=== PATIENT | male | born 2000 | race Caucasian/White ===

== ENCOUNTER → 2018-08-08 | Outpatient (CLI) | payer OTHER ==
[~2018-08-08] MED LIST: AMOXICILLIN250 MG PO; PROVENTIL0.09 MG/A1 INH
[2018-08-08 11:56] LABS: ALBUMIN 4.4 gm/dl (3.1-4.5); ALKALINE PHOSPHATASE 106 U/L (45-117); BUN 9 mg/dl (7-24); CHLORIDE 106 mmol/L (98-107); CHOLESTEROL 167 mg/dL (<200); CREATININE 0.98 mg/dL (0.70-1.30); HDL CHOLESTEROL 45 mg/dl (40-60); LDL CHOLESTEROL 99 mg/dL (9-159); POTASSIUM 4.1 mmol/L (3.5-5.1); SGOT/AST 28 IU/L (3-35); SGPT/ALT 57 U/L (12-78); SODIUM 140 mmol/L (136-145); TOTAL PROTEIN 7.1 gm/dL (6.4-8.2); TRIGLYCERIDES 116 mg/dl (<150); VLDL CHOLESTEROL 23 mg/dL (6-40)
[2018-08-09 06:09] LABS: HEPATITIS B SURFACE AB 006395 Non Reactive (.)
[2018-08-09 16:08] LABS: VARICELLA-ZOSTER IGG 096206 <135 index (Immune >165); VARICELLA-ZOSTER IGM AB <0.91 index (0.00-0.90)
== END | disposition home or self-care (01) ==
LOC: LAB 10:51
PROVIDERS: Nurse Practitioner Primary Care
DX: Z13.220 Encounter for screening for lipoid disorders (principal); Z02.0 Encounter for examination for admission to educational institution